=== PATIENT | female | born 1980 | race Two or more races ===

== ENCOUNTER 2020-01-11 11:51 | Outpatient (CLI) | payer OTHER | END 2020-01-11 13:00 | disposition home or self-care (01) | LOC: OFIC 805 11:51 | PROVIDERS: ATTEND Otolaryngology Otology & Neurotology | DX: G44.89 Other headache syndrome (principal); J31.0 Chronic rhinitis ==

== ENCOUNTER → 2020-01-30 | Outpatient (CLI) | payer OTHER | END | disposition home or self-care (01) | LOC: OFIC 805 15:00 | PROVIDERS: ATTEND Otolaryngology Otology & Neurotology | DX: G44.89 Other headache syndrome (principal); J31.0 Chronic rhinitis ==